=== PATIENT | male | born 1995 | race Caucasian/White ===

== ENCOUNTER → 2019-12-23 | Outpatient (CLI) | payer OTHER ==
--- NOTE | 2019-12-23 12:24 | Diagnostic Imaging Report ---
Clinical indication: Patient with non-Hodgkin's lymphoma. Patient with right axillary skin mass. EXAM: Ultrasound soft tissue evaluation of the right axillary palpable area of concern. COMPARISON: None. Findings and impression: There is a 5.0 cm x 3.0 cm x 2.5 cm lobulated hypoechoic solid mass located in the right axillary area which demonstrates significant central Doppler flow. This is concerning for pathologic lymph node which may be related to patient's history of lymphoma. Dictated by: Dictated on workstation # [id number]
== END ==
LOC: RAD 11:10
PROVIDERS: ATTEND Nurse Practitioner Family
DX: C85.94 Non-Hodgkin lymphoma, unspecified, lymph nodes of axilla and upper limb (principal)
CPT/HCPCS: 76999

== ENCOUNTER 2020-01-31 07:10 | Outpatient (RCR) | payer OTHER ==
[~2020-01-31] VITALS: Ht 185.5 cm; Wt 77.3 kg
[~2020-01-31 07:10] MED LIST: CETI10TA21 PO
== END 2020-01-31 15:49 | disposition home or self-care (01) ==
LOC: PREOP 07:10
PROVIDERS: ATTEND Surgery
DX: Z01.818 Encounter for other preprocedural examination (principal); Z11.59 Encounter for screening for other viral diseases
CPT/HCPCS: 87635